=== PATIENT | female | born 1985 | race Caucasian/White ===

== ENCOUNTER 2024-05-09 08:30 | Observation (INO) ==
[2024-05-09] MEDS: LR 1,000 ML IV 1,000 ML IV ONE (08:50)
[2024-05-09] MEDS: LR 1,000 ML IV 800 ML IV PRN (09:45)
[2024-05-09] MEDS: VERSED IVP PRN (09:51)
[2024-05-09] MEDS: ZOFRAN INJ 4 MG VIAL IVP PRN (09:52)
[2024-05-09] MEDS: PEPCID 20 MG VIAL IVP PRN (09:54)
[2024-05-09] MEDS: REGLAN INJ 10 MG VIAL IVP PRN (09:56)
[2024-05-09] MEDS ORDERED: KETAMINE HCL ONE (09:59)
[2024-05-09] MEDS ORDERED: ULTANE GAS IN ONE (09:59)
[2024-05-09] MEDS ORDERED: SUPRANE IN ONE (09:59)
[2024-05-09] MEDS: ANCEF VIAL 1 GRAM IV PRN (09:59)
[2024-05-09] MEDS: ANCEF VIAL 1 GRAM ONE (10:13)
[2024-05-09] MEDS: KETAMINE HCL IV PRN (10:15)
[2024-05-09] MEDS: FENTANYL VIAL INJ 100 mcg IVP PRN (10:15)
[2024-05-09] MEDS: ZEMURON 100 MG VIAL IVP PRN (10:16)
[2024-05-09] MEDS: DIPRIVAN VIAL 200 ML IVP PRN (10:16)
[2024-05-09] MEDS: DECADRON INJ IVP PRN (10:36)
[2024-05-09] MEDS: POLYMYXIN B SULFATE ONE (10:43)
[2024-05-09] MEDS: OFIRMEV IV 1000 MG VIAL 1,000 MG/100 ML VIAL IV PRN (11:00)
[2024-05-09] MEDS: DANTRIUM IVP PRN (11:15)
[2024-05-09] MEDS: ROBINUL IVP PRN (11:18)
[2024-05-09] MEDS: BRIDION IVP PRN (11:18)
[2024-05-09] MEDS ORDERED: BENADRYL INJ 50 MG VIAL IVP PRN (11:56)
[2024-05-09] MEDS ORDERED: BARHEMSYS INJ IVP PRN (11:56)
[2024-05-09] MEDS ORDERED: DILAUDID INJ IVP PRN (11:56)
[2024-05-09] MEDS ORDERED: ZOFRAN INJ 4 MG VIAL IVP PRN (11:56)
--- NOTE | 2024-05-09 12:18 | RAD ---
EXAM:CHEST, 1 VIEWHISTORY:DIFFICULT INTUBATION, WHEEZING;COMPARISON:05/07/2024FINDINGS:T here has been a change from 2 days ago.Venous congestion with possible pulmonary edema suggest pulmonary edema. This could be cardiogenic in origin since the heart appears large; some of this could be due to the magnification and portable technique.The bones are unremarkable.EKG leads are noted left chest.But I do not see an ETT on the image. The study includes up to the C5-6 disc space level.IMPRESSION:1. Findings suggesting pulmonary edema2. Possible cardiomegaly3. No ET tube identifiedTHIS IS AN ELECTRONICALLY VERIFIED FINAL REPORT05/09/2024 12:14 PM - Electronically signed by Sumeet Pina MD
[2024-05-09] MEDS: D5 1/2 NS 1,000 ML 1,000 ML IV SCH (12:21)
[2024-05-09] MEDS: PERCOCET TAB 5/325 MG PO PRN (12:54)
[2024-05-09] MEDS ORDERED: NS IRRIGATION* 500 ML IR ONE (13:20)
[2024-05-09] MEDS: ZOFRAN INJ 4 MG VIAL ONE (14:26)
[2024-05-09] MEDS: PEPCID 20 MG VIAL ONE (14:26)
[2024-05-09] MEDS: REGLAN INJ 10 MG VIAL ONE (14:26)
[2024-05-09] MEDS: OFIRMEV IV 1000 MG VIAL 1,000 MG/100 ML VIAL IV ONE (14:27)
[2024-05-09] MEDS: VERSED ONE (14:27)
[2024-05-09] MEDS: DUONEB 0.5 MG/3 MG (3 mL) NEB SCH (14:27)
[2024-05-09] MEDS: ULTANE GAS IN ONE (14:27)
[2024-05-09] MEDS: DIPRIVAN VIAL 20 ML ONE (14:27)
[2024-05-09] MEDS: FENTANYL VIAL INJ 100 mcg ONE (14:27)
[2024-05-09] MEDS: ROBINUL ONE (14:28)
[2024-05-09] MEDS: DECADRON INJ ONE (14:28)
[2024-05-09] MEDS: ANCEF VIAL 1 GRAM IVP SCH (14:32)
[2024-05-09 17:13] VITALS: BMI 55.4
[2024-05-10 04:22] VITALS: TEMP 98.6
[2024-05-10 05:12] LABS: BASOPHILS % (AUTO) 0.1 % (0.2-1.0); HEMATOCRIT 34.5 % (36.0-47.0); HEMOGLOBIN 11.3 g/dL (12.0-16.0); LYMPHOCYTES # (AUTO) 0.9 X10^3/uL (1.3-2.9); LYMPHOCYTES % (AUTO) 5.8 % (21.0-51.0); MEAN CORPUSCULAR HEMOGLOBIN 26.4 pg (27.0-34.0); MEAN CORPUSCULAR HGB CONC 32.9 g/dL (33.0-35.0); MEAN CORPUSCULAR VOLUME 80.4 fL (80.0-100.0); MEAN PLATELET VOLUME 8.4 fL (7.4-11.0); MONOCYTES # (AUTO) 0.4 x10^3/uL (0.3-0.8); MONOCYTES % (AUTO) 2.9 % (0.0-13.0); NEUTROPHILS # (AUTO) 13.5 x10^3/uL (2.2-4.8); NEUTROPHILS % (AUTO) 91.2 % (42.0-75.0); PLATELET COUNT 236 X10^3/uL (150.0-450.0); RED BLOOD COUNT 4.29 X10^6/uL (3.5-5.4); RED CELL DISTRIBUTION WIDTH 16.3 % (11.6-16.5); WHITE BLOOD COUNT 14.8 X10^3/uL (3.6-10.0)
[2024-05-10 05:28] LABS: ALANINE AMINOTRANSFERASE 36 Units/L (12-78); ALBUMIN 3.2 g/dL (3.4-5.0); ALKALINE PHOSPHATASE 68 Units/L (46-116); ASPARTATE AMINO TRANSFERASE 21 Units/L (15-37); BLOOD UREA NITROGEN 13 mg/dL (7-18); CALCIUM 9.1 mg/dL (8.5-10.1); CARBON DIOXIDE 27.7 mmol/L (21-32); CHLORIDE 103 mmol/L (98-107); COR CA(FOR HYPOALB) 9.7 mg/dL (8.5-10.1); COR NA(FOR HYPERGLY) 140 mmol/L (136-145); CREATININE 0.73 mg/dL (0.55-1.02); GLUCOSE 121 mg/dL (65-99); SODIUM 139 mmol/L (136-145); TOTAL PROTEIN 7.5 g/dL (6.4-8.2); eGFR NON BLACK RACES > 60 (>60)
[2024-05-10 05:58] VITALS: RESP 20
[2024-05-10 06:44] LABS: PLATELET MORPHOLOGY COMMENT NORMAL (NORMAL)
[2024-05-10 06:45] LABS: HYPOCHROMASIA SLIGHT
[2024-05-10] MEDS: TYLENOL 325 MG TAB PO PRN (07:56)
[2024-05-10 08:03] VITALS: BP 114/53
[2024-05-10] MEDS: TYLENOL 325 MG TAB PO ONE (10:25)
[2024-05-10 10:28] VITALS: PULSE 89; O2SAT 96
== END 2024-05-10 11:54 | disposition home or self-care (01) ==
LOC: SURG1 08:30 → ICU 08:30
PROVIDERS: ADMIT Surgery; ATTEND Surgery
PROC: [UNRECOGNIZED PROCEDURE] (2024-05-09 09:40)
DX: N63.14 Unspecified lump in the right breast, lower inner quadrant; Z65.8 Other specified problems related to psychosocial circumstances; Z60.8 Other problems related to social environment; Z15.09 Genetic susceptibility to other malignant neoplasm; Z59.82 Transportation insecurity; Z59.41 Food insecurity; N60.01 Solitary cyst of right breast; T81.590A Other complications of foreign body accidentally left in body following surgical operation, initial encounter; Z90.13 Acquired absence of bilateral breasts and nipples